=== PATIENT | male | born 1965 | race Caucasian/White ===

== ENCOUNTER → 2016-11-13 | Outpatient (CLI) | payer BC ==
[2016-11-13 11:56] VITALS: BP 133/83; PULSE 75; RESP 20; TEMP 98.5; BMI 45.6
[2016-11-13 13:42] LABS: Partial Thromboplastin Time 26.1 sec (22.0-30.0); Prothrombin Time 10.6 sec (9.0-12.0)
[2016-11-13 13:59] LABS: ALT 85 U/L (21-72); AST 59 U/L (17-59); Alkaline Phosphatase 128 U/L (38-126); Anion Gap 10 mmol/L; Blood Urea Nitrogen 9 mg/dL (9-20); CH 30.9; CHCM 35.6; Calcium 9.6 mg/dL (8.4-10.2); Carbon Dioxide 29 mmol/L (22-30); Chloride 101 mmol/L (98-107); Cholesterol 205 mg/dL (<200); Glucose 84 mg/dL (74-99); HCT 49.8 % (39.0-53.0); HDL Cholesterol 50 mg/dL (40-60); HDW 2.95; HGB 16.8 gm/dL (13.0-17.5); MCH 29.4 pg (25.0-35.0); MCHC 33.8 g/dL (31.0-37.0); MCV 87.1 fL (80.0-100.0); Magnesium 2.1 mg/dL (1.6-2.3); Mean Platelet Volume 8.6; Non-African American GFR(MDRD) >60 (>60 ml/min/1.73 sqM); Phosphorus 3.1 mg/dL (2.5-4.5); RBC 5.72 m/uL (4.30-5.90); RDW 14.3 % (11.5-15.5); Sodium 140 mmol/L (137-145); Total Bilirubin 1.2 mg/dL (0.2-1.3); Total Protein 7.8 g/dL (6.3-8.2)
[2016-11-13 14:46] LABS: Vitamin B12 399 pg/mL (239-931)
[2016-11-13 19:09] LABS: Iron Saturation 40.65 (15.00-50.00)
[2016-11-14 07:58] LABS: Hemoglobin A1C 5.3 % (4.2-6.1)
[2016-11-19 19:17] LABS: Selenium 160 mcg/L (63-160)
--- NOTE | 2016-11-24 09:08 | P.PN ---
Progress Note - Text DATE OF SERVICE: 11/13/2016. CHIEF COMPLAINT: Bariatric assessment. HISTORY OF PRESENT ILLNESS: Brennon Alfredo is a 51-year-old gentleman who has a history of adjustable gastric band. His last visit to the bariatric center was September 2015 now 1 year ago. At that time, he had an adjustment. He now comes in with more weight gain despite having his adjustable gastric band. At his height of 6 feet 1 inches, he came in weighing 329 pounds. Now he comes in weighing 345 pounds. He has gained 16 pounds in 1 year. His body mass index is 45.6. He is 157 pounds overweight. He has developed comorbidities including hypertension and obstructive sleep apnea. He also has worsening osteoarthritis of the lower extremities. PAST MEDICAL HISTORY: 1. Morbid obesity. 2. Osteoarthritis. 3. Hypertension. 4. Obstructive sleep apnea. PAST SURGICAL HISTORY: 1. Left knee arthroscopy. 2. Placement of adjustable gastric band. MEDICATIONS: 1. Norvasc. 2. Hyzaar. ALLERGIES: PENICILLIN. SOCIAL HISTORY: Denies any active tobacco use. Lifelong nontobacco user. FAMILY HISTORY: Pertinent for morbid obesity. REVIEW OF SYSTEMS: CONSTITUTIONAL: At his height of 6 feet 1 inches, he came in weighing 329 pounds. Now he comes in weighing 345 pounds. He has gained 16 pounds in 1 year. His body mass index is 45.6. He is 157 pounds overweight. CARDIOVASCULAR: He has been started on two hypertensive medications secondary to morbid obesity. No chest pain or heart attack. MUSCULOSKELETAL: New onset of osteoarthritis of the bilateral knees secondary to morbid obesity. Has low back pain. HEENT: Denies any trouble with vision or hearing. ENDOCRINE: No reports of diabetes or hypothyroidism. RESPIRATORY: History of obstructive sleep apnea. No reports of pneumonia. GI: Denies any heartburn or blood in stools. NEURO: No headaches or seizure disorders. PSYCH: History of depression without suicidal ideation. HEMATOLOGIC: Denies any easy bruising or bleeding. PHYSICAL EXAM: VITAL SIGNS: 6-foot 1, 345 pounds. Body mass index of 45.6. Vital Signs Temp 98.5 F 11/13/16 11:49 Pulse 75 11/13/16 11:49 Resp 20 11/13/16 11:49 BP 133/83 11/13/16 11:49 Pulse Ox ABDOMEN: No palpable incisional hernias. Lap band port palpated on the left upper quadrant. No signs of redness. Soft, nontender, nondistended. GENERAL: Well-developed, pleasant male in no acute distress. HEENT: No scleral icterus. Extraocular movements grossly intact. Moist buccal mucosa. NECK: Supple without lymphadenopathy. CHEST: Nonlabored respirations. Equal bilateral excursions. CARDIOVASCULAR: Regular rate and rhythm. MUSCULOSKELETAL: No clubbing, cyanosis, or edema. NEURO: No focal or lateralizing signs. Cranial nerves II-12 grossly intact. PSYCH: Appropriate affect. Alert and order person place and time. SKIN: Well perfused. Good skin turgor. LABS: Pending. ASSESSMENT: 1. History of morbid obesity. 2. Body mass index 45.6. 3. Osteoarthritis. 4. History of adjustable gastric band. 5. History of depression. 6. Osteoarthritis of the bilateral knees secondary to morbid obesity. 7. Hypertensive heart disease. 8. Obstructive sleep apnea. PLAN: 1. He has had poor success with the adjustable gastric band past 10-15 pound weight loss. Additionally, now he is seeking a more definitive procedure such as a gastrectomy. 2. Surgical options including gastric bypass, sleeve gastrectomy were described in detail. Alternatives such as gastric balloon including duodenal switch were described. 3. The [place] [facility] data and outcomes calculator were described with surgical options. 4. Recommend a bariatric metabolic panel to evaluate for micro- including macronutrient deficiencies. 5. For history of sleep apnea, recommend evaluation and treatment. 6. Dietary surveillance and counseling was reviewed, I have asked to increase protein intake to at least 90 grams daily. 7. Will need cardiac risk assessment. 8. Recommend medical risk assessment. 9. Psych assessment per insurance guidelines. 10. Follow up upon completion of upper endoscopy. 11. Separately, potential band removal followed by bariatric procedure in two- step seperate procedures were reviewed. ADDENDUM: Findings consistent with hypercholesterolemia including severe vitamin D deficiency and vitamin D deficiency. Recommend supplementation. Laboratory Last Values WBC 8.0 k/uL (3.8-10.6) 11/13/16 13:16 RBC 5.72 m/uL (4.30-5.90) 11/13/16 13:16 Hgb 16.8 gm/dL (13.0-17.5) 11/13/16 13:16 Hct 49.8 % (39.0-53.0) 11/13/16 13:16 MCV 87.1 fL (80.0-100.0) 11/13/16 13:16 MCH 29.4 pg (25.0-35.0) 11/13/16 13:16 MCHC 33.8 g/dL (31.0-37.0) 11/13/16 13:16 RDW 14.3 % (11.5-15.5) 11/13/16 13:16 Plt Count 260 k/uL (150-450) 11/13/16 13:16 PT 10.6 sec (9.0-12.0) 11/13/16 13:16 INR 1.0 (<1.2) 11/13/16 13:16 APTT 26.1 sec (22.0-30.0) 11/13/16 13:16 Sodium 140 mmol/L (137-145) 11/13/16 13:16 Potassium 4.0 mmol/L (3.5-5.1) 11/13/16 13:16 Chloride 101 mmol/L (98-107) 11/13/16 13:16 Carbon Dioxide 29 mmol/L (22-30) 11/13/16 13:16 Anion Gap 10 mmol/L 11/13/16 13:16 BUN 9 mg/dL (9-20) 11/13/16 13:16 Creatinine 0.80 mg/dL (0.66-1.25) 11/13/16 13:16 Est GFR (MDRD) Af Amer >60 (>60 ml/min/1.73 sqM) 11/13/16 13:16 Est GFR (MDRD) Non-Af >60 (>60 ml/min/1.73 sqM) 11/13/16 13:16 Glucose 84 mg/dL (74-99) 11/13/16 13:[address] Glu mg/dL 105 mg/dL 11/13/16 13:16 Hemoglobin A1c 5.3 % (4.2-6.1) 11/13/16 13:16 Calcium 9.6 mg/dL (8.4-10.2) 11/13/16 13:16 Phosphorus 3.1 mg/dL (2.5-4.5) 11/13/16 13:16 Magnesium 2.1 mg/dL (1.6-2.3) 11/13/16 13:16 Iron 126 ug/dL (65-175) 11/13/16 13:16 TIBC 310 ug/dL (228-460) 11/13/16 13:16 Iron Saturation 40.65 (15.00-50.00) 11/13/16 13:16 Ferritin 640.8 ng/mL (22.0-322.0) H 11/13/16 13:16 Total Bilirubin 1.2 mg/dL (0.2-1.3) 11/13/16 13:16 AST 59 U/L (17-59) 11/13/16 13:16 ALT 85 U/L (21-72) H 11/13/16 13:16 Alkaline Phosphatase 128 U/L (38-126) H 11/13/16 13:16 Total Protein 7.8 g/dL (6.3-8.2) 11/13/16 13:16 Albumin 4.4 g/dL (3.5-5.0) 11/13/16 13:16 Prealbumin 19.0 mg/dL (18.0-42.0) 11/13/16 13:16 Triglycerides 126 mg/dL (<150) 11/13/16 13:16 Cholesterol 205 mg/dL (<200) H 11/13/16 13:16 LDL Cholesterol, Calc 130 mg/dL (0-99) H 11/13/16 13:16 HDL Cholesterol 50 mg/dL (40-60) 11/13/16 13:16 Vitamin A 27 ug/dL (38-106) L 11/13/16 13:16 Vitamin B1 76 ug/L (38-122) 11/13/16 13:16 Vitamin B12 399 pg/mL (239-931) 11/13/16 13:16 Vitamin D 25-Hydroxy 10.6 ng/mL (30.0-100.0) L 11/13/16 13:16 Folate 19.6 ng/mL 11/13/16 13:16 TSH 1.940 mIU/L (0.465-4.680) 11/13/16 13:16 PTH Intact 122.5 pg/mL (14.0-72.0) H 11/13/16 13:16 Copper 1372 ug/L (665-1480) 11/13/16 13:16 Selenium 160 mcg/L (63-160) 11/13/16 13:16 Zinc 104 ug/dL (60-130) 11/13/16 13:16
== END | disposition home or self-care (01) ==
LOC: BARWHC3 10:52
PROVIDERS: ATTEND Surgery Plastic and Reconstructive Surgery
DX: Z48.815 Encounter for surgical aftercare following surgery on the digestive system (principal); E66.01 Morbid (severe) obesity due to excess calories; M19.90 Unspecified osteoarthritis, unspecified site; F32.9 Major depressive disorder, single episode, unspecified; M17.0 Bilateral primary osteoarthritis of knee; I11.9 Hypertensive heart disease without heart failure; G47.33 Obstructive sleep apnea (adult) (pediatric); E21.1 Secondary hyperparathyroidism, not elsewhere classified; E89.1 Postprocedural hypoinsulinemia; D50.9 Iron deficiency anemia, unspecified; K90.9 Intestinal malabsorption, unspecified; E44.0 Moderate protein-calorie malnutrition; E55.9 Vitamin D deficiency, unspecified; K74.1 Hepatic sclerosis; N19 Unspecified kidney failure; K50.90 Crohn's disease, unspecified, without complications; Z68.42 Body mass index [BMI] 45.0-49.9, adult; Z79.899 Other long term (current) drug therapy; Z98.84 Bariatric surgery status; Z88.0 Allergy status to penicillin
CPT/HCPCS: 80053; 80061; 82306; 82525; 82607; 82728; 82746; 83036; 83540; 83550; 83735; 83970; 84100; 84134; 84255; 84425; 84443; 84590; 84630; 85027; 85610; 85730; 99211

== ENCOUNTER → 2016-11-24 | Outpatient (CLI) | payer BC ==
--- NOTE | 2016-11-24 20:55 | CT ---
EXAMINATION TYPE: CT abdomen wo con DATE OF EXAM: 11/24/2016 HISTORY: Abdominal in particular left upper and lower quadrants pain per order. Epigastric pain near lap band for [address] DLP: 1146.20 mGycm. Automated Exposure Control for Dose Reduction was Utilized. TECHNIQUE: CT scan of the abdomen is performed with oral but without IV contrast. COMPARISON: NONE FINDINGS: Within the limitations of a non-contrast study, the following observations are made. LUNG BASES: No suspicious abnormality is seen. LIVER/GB: Liver is markedly diffusely low dense consistent with fatty infiltration. PANCREAS: No significant abnormality is seen. SPLEEN: No significant abnormality is seen. ADRENALS: No significant abnormality is seen. KIDNEYS: No renal stones or hydronephrosis is present bilaterally. BOWEL: Lap band position is felt satisfactory just below diaphragm. There may be small hiatal hernia or dilatation of distal esophagus above this. Oral contrast is seen in nondistended stomach and duode nal sweep. Oral contrast seen in nondistended jejunal loops in the left abdomen. Fecal material is se en in nondistended colon. LYMPH NODES: No greater than 1cm abdominal lymph nodes are appreciated. OSSEOUS STRUCTURES: Spine is straightened. There is mild to moderate multilevel spurring in the visua lized thoracic spine. OTHER: There is small fat-containing umbilical hernia. IMPRESSION: No suspicious finding is seen to account for patient's symptoms. No CT evidence for lap b and slippage.
== END | disposition home or self-care (01) ==
LOC: RADCTMAIN 18:16
PROVIDERS: ATTEND Surgery Plastic and Reconstructive Surgery
DX: R10.12 Left upper quadrant pain (principal); R10.32 Left lower quadrant pain
CPT/HCPCS: 74150

== ENCOUNTER 2024-05-16 06:55 | Day surgery (SDC) | payer BC ==
[2024-05-12 14:09] VITALS: BMI 46.1
[~2024-05-16 06:55] MED LIST: LACTATED RINGERS 1,000 ML IV SCH
[2024-05-16] MEDS: IV FLUID CONTINUATION 1,000 ML IV ONE (07:16)
[2024-05-16 07:44] VITALS: TEMP 98.5
--- NOTE | 2024-05-16 07:50 | P.GSHP ---
History of Present Illness H&P Date: 05/16/24 CHIEF COMPLAINT: GERD HISTORY OF PRESENT ILLNESS: The patient is a 59-year-old male who presents reports gastroesophageal reflux disease and dysphagia. Upper endoscopy was offered for further evaluation and management. PAST MEDICAL HISTORY: Please see list. PAST SURGICAL HISTORY: Please see list. MEDICATIONS: Please see list. ALLERGIES: Please see list. SOCIAL HISTORY: No illicit drug use FAMILY HISTORY: No reports of Crohn disease or ulcerative colitis. REVIEW OF ORGAN SYSTEMS: CONSTITUTIONAL: No reports of fevers or chills. GI: Denies any blood in stools or constipation. PHYSICAL EXAM: VITAL SIGNS: Stable GENERAL: Well-developed and pleasant in no acute distress. HEENT: No scleral icterus. Extraocular movements grossly intact. Moist buccal mucosa. NECK: Supple without lymphadenopathy. CHEST: Unlabored respirations. Equal bilateral excursions. CARDIOVASCULAR: Regular rate and rhythm. Distal 2+ pulses. ABDOMEN: Soft, nondistended. MUSCULOSKELETAL: No clubbing, cyanosis, or edema. ASSESSMENT: 1. Gastroesophageal reflux disease and dysphagia PLAN: 1. Recommend proceeding with an upper endoscopy Past Medical History Past Medical History: Diabetes Mellitus, Hyperlipidemia, Hypertension, Osteoarthritis (OA), Sleep Apnea/CPAP/BIPAP Additional Past Medical History / Comment(s): borderline hyperlipidema, MGUS- blood disorder. History of Any Multi-Drug Resistant Organisms: None Reported Past Surgical History: Bariatric Surgery, Orthopedic Surgery Additional Past Surgical History / Comment(s): Lap Band (Dr. Henry 2002) , Left knee scope x3, Rt ring trigger finger injection, COLONOSCOPY,EGD Past Anesthesia/Blood Transfusion Reactions: No Reported Reaction Smoking Status: Never smoker - Past Family History Mother Family Medical History: Cancer, Hypertension Additional Family Medical History / Comment(s): at age 65 from lung cancer, was a smoker Father Family Medical History: COPD, Hypertension Additional Family Medical History / Comment(s): Still living age 74 as of 10/03/15 Medications and Allergies Home Medications Medication Instructions Recorded Confirmed Type Aspirin [Adult Low Dose Aspirin EC] 81 mg PO PC-LUNCH 03/30/24 05/16/24 History Atorvastatin [Lipitor] 20 mg PO PC-SUPPER 03/30/24 05/16/24 History Cholecalciferol [Vitamin D3 (125 125 mcg PO PC-SUPPER 03/30/24 05/16/24 History Mcg = 5000 Iu)] Loratadine [Claritin] 10 mg PO PC-SUPPER 03/30/24 05/16/24 History Losartan Potassium 100 mg PO PC-SUPPER 03/30/24 05/16/24 History Metoprolol Succinate (ER) [Toprol 50 mg PO PC-SUPPER 03/30/24 05/16/24 History Xl] [place]-3/Dha/Epa/Fish Oil [Fish Oil 1 tab PO PC-SUPPER 03/30/24 05/16/24 History 500 mg Softgel] Vitamin A 2,400 mcg PO PC-SUPPER 03/30/24 05/16/24 History amLODIPine [Norvasc] 10 mg PO PC-SUPPER 03/30/24 05/16/24 History hydroCHLOROthiazide 12.5 mg PO PC-SUPPER 03/30/24 05/16/24 History Allergies Allergy/AdvReac Type Severity Reaction Status Date / Time aspirin Allergy Rash/Hives Verified 05/16/24 07:34 Penicillins Allergy Rash/Hives Verified 05/16/24 07:34 Surgical - Exam Vital Signs Temp Pulse Resp BP Pulse Ox 98.5 F 86 18 185/76 96 05/16/24 07:43 05/16/24 07:43 05/16/24 07:43 05/16/24 07:43 05/16/24 07:43
[2024-05-16] MEDS ORDERED: LIDOCAINE 2% (PF) 20 MG/ML 5 ML VIAL ONE (07:51)
[2024-05-16] MEDS ORDERED: PROPOFOL 10 MG/ML 20 ML VIAL IV ONE (07:51)
--- NOTE | 2024-05-16 08:25 | P.PCN ---
Date of Procedure: 05/16/24 Description of Procedure: PREOPERATIVE DIAGNOSIS: Dysphagia Adjustable gastric band status Gastroesophageal reflux disease. Morbid obesity. POSTOPERATIVE DIAGNOSIS: Gastroesophageal reflux disease. Morbid obesity due to excess calories Gastritis. Gastric polyps Adjustable gastric band OPERATION: Esophagogastroduodenoscopy with cold forceps biopsies along esophagus, antrum and duodenum SURGEON: Jamila Gutierrez MD ANESTHESIA: MAC. INDICATIONS: The patient is a 59-year-old male who presents with dysphagia and adjustable gastric band with reflux disease. Benefits and risks of the procedure were described. Informed consent was obtained. DESCRIPTION: The patient was brought into the endoscopy suite and laid in the left lateral decubitus position. An Olympus gastroscope was passed along the posterior oropharynx down to the distal esophagus where the squamocolumnar junction was encountered at 40 cm from the incisors. The stomach was entered and no bile reflux was found. Additional findings are listed below. Biopsies with cold forceps were obtained of the antrum. The first through third portion of the duodenum was examined. Retroflexion of the scope confirmed Hill grade 1 lower esophageal valve. The squamocolumnar junction demonstrated LA grade B erosive esophagitis. The stomach was desufflated. The patient tolerated the procedure well. FINDINGS: Squamocolumnar junction 40 cm from the incisors. Adjustable gastric band pouch, 3 cm Adjustable gastric band without erosion Hill grade 1 lower esophageal valve. LA grade B erosive esophagitis. Biopsies obtained Biopsies obtained of the duodenum. Chronic gastritis with biopsies obtained. Few hyperplastic gastric polyps less than 4 mm RECOMMENDATIONS: Upper endoscopy as needed. Plan - Discharge Summary Discharge Rx Participant: No New Discharge Prescriptions: Continue [place]-3/Dha/Epa/Fish Oil [Fish Oil 500 mg Softgel] 1 tab PO PC-SUPPER Loratadine [Claritin] 10 mg PO PC-SUPPER Vitamin A 2,400 mcg PO PC-SUPPER hydroCHLOROthiazide 12.5 mg PO PC-SUPPER Losartan Potassium 100 mg PO PC-SUPPER Aspirin [Adult Low Dose Aspirin EC] 81 mg PO PC-LUNCH amLODIPine [Norvasc] 10 mg PO PC-SUPPER Metoprolol Succinate (ER) [Toprol XL] 50 mg PO PC-SUPPER Atorvastatin [Lipitor] 20 mg PO PC-SUPPER Cholecalciferol [Vitamin D3 (125 Mcg = 5000 Iu)] 125 mcg PO PC-SUPPER Discharge Medication List Aspirin [Adult Low Dose Aspirin EC] 81 mg PO PC-LUNCH 03/30/24 [History] Atorvastatin [Lipitor] 20 mg PO PC-SUPPER 03/30/24 [History] Cholecalciferol [Vitamin D3 (125 Mcg = 5000 Iu)] 125 mcg PO PC-SUPPER 03/30/24 [History] Loratadine [Claritin] 10 mg PO PC-SUPPER 03/30/24 [History] Losartan Potassium 100 mg PO PC-SUPPER 03/30/24 [History] Metoprolol Succinate (ER) [Toprol XL] 50 mg PO PC-SUPPER 03/30/24 [History] [place]-3/Dha/Epa/Fish Oil [Fish Oil 500 mg Softgel] 1 tab PO PC-SUPPER 03/30/24 [History] Vitamin A 2,400 mcg PO PC-SUPPER 03/30/24 [History] amLODIPine [Norvasc] 10 mg PO PC-SUPPER 03/30/24 [History] hydroCHLOROthiazide 12.5 mg PO PC-SUPPER 03/30/24 [History] [facility]Ref[facility] [place] [facility] [place] [facility] 3:00 pm Patient Instructions/Handouts: *Surgery [facility] - (Anesthesia) Discharge Instructions Outpatient Surgery, GERD (Gastroesophageal Reflux Disease) (GEN) Discharge Disposition: HOME SELF-CARE
[2024-05-16 08:29] VITALS: BP 154/92; PULSE 75; RESP 16
== END 2024-05-16 08:50 | disposition home or self-care (01) ==
LOC: ORWHC2ENDO 06:55
PROVIDERS: ATTEND Surgery Plastic and Reconstructive Surgery
DX: K29.50 Unspecified chronic gastritis without bleeding (principal); K31.7 Polyp of stomach and duodenum; K21.00 Gastro-esophageal reflux disease with esophagitis, without bleeding; M19.90 Unspecified osteoarthritis, unspecified site; I10 Essential (primary) hypertension; E78.5 Hyperlipidemia, unspecified; E66.01 Morbid (severe) obesity due to excess calories; E11.9 Type 2 diabetes mellitus without complications; G47.33 Obstructive sleep apnea (adult) (pediatric); Z79.82 Long term (current) use of aspirin; Z88.0 Allergy status to penicillin; Z79.899 Other long term (current) drug therapy; Z68.42 Body mass index [BMI] 45.0-49.9, adult; Z99.89 Dependence on other enabling machines and devices; Z98.84 Bariatric surgery status
CPT/HCPCS: 88305; 43239; J2704; J2003

== ENCOUNTER 2024-06-09 07:45 | Day surgery (SDC) | payer BC ==
--- NOTE | 2024-06-09 06:34 | P.GSHP ---
History of Present Illness H&P Date: 06/09/24 CHIEF COMPLAINT: Morbid obesity HISTORY OF PRESENT ILLNESS: Brennon Alfredo is a 59-year-old male with adjustable gastric band send 2002. He presents with complications of adjustable gastric band and seeking removal. Despite his adjustable gastric band, he continues to gain weight. At his height of 6 feet 1 inches, he came in weighing 329 pounds. Now he comes in weighing 345 pounds. He has gained 16 pounds in 1 year. His body mass index is 45.6. He is 157 pounds overweight. PAST MEDICAL HISTORY: 1. Morbid obesity due to excess calories, BMI 46.1 2. Osteoarthritis lower back 3. Hypertensive heart disease 4. Obstructive sleep apnea. 5. Generalized anxiety disorder 6. Depressive disorder 7. Hyperlipidemia PAST SURGICAL HISTORY: 1. Lap-Band, 2002 2. Left knee arthroscopy 3. Right trigger finger repair MEDICATIONS: ALLERGIES: SOCIAL HISTORY: Denies any active tobacco use. Lifelong nontobacco user. FAMILY HISTORY: Pertinent for morbid obesity. No esophageal or stomach cancer. REVIEW OF SYSTEMS: CONSTITUTIONAL: At his height of 6 feet 1 inches, he came in weighing 329 pounds. Now he comes in weighing 345 pounds. He has gained 16 pounds in 1 year. His body mass index is 45.6. He is 157 pounds overweight. CARDIOVASCULAR: He has been started on two hypertensive medications secondary to morbid obesity. No chest pain or heart attack. MUSCULOSKELETAL: New onset of osteoarthritis of the bilateral knees secondary to morbid obesity. Has low back pain. HEENT: Denies any trouble with vision or hearing. ENDOCRINE: No reports of diabetes or hypothyroidism. RESPIRATORY: History of obstructive sleep apnea. No reports of pneumonia. GASTROINTESTINAL: Denies any heartburn or blood in stools. NEURO: No headaches or seizure disorders. PSYCH: History of depression without suicidal ideation. HEMATOLOGIC: Denies any easy bruising or bleeding. GENITOURINARY: Denies blood in urine. SKIN: Has panniculitis. No cancer. PHYSICAL EXAM: VITAL SIGNS: 6 foot 1, 349 pounds. Body mass index of 46.1 ABDOMEN: No palpable incisional hernias. Lap band port palpated. the left upper quadrant. No signs of redness. Soft, nontender, nondistended. GENERAL: Well-developed, pleasant male in no acute distress. HEENT: No scleral icterus. Extraocular movements grossly intact. Moistbuccal mucosa. NECK: Supple without lymphadenopathy. CHEST: Nonlabored respirations. Equal bilateral excursions. CARDIOVASCULAR: Regular rate and rhythm. MUSCULOSKELETAL: No clubbing, cyanosis, or edema. NEURO: No focal or lateralizing signs. Cranial nerves II-12 grossly intact. PSYCH: Appropriate affect. Alert and order person place and time. SKIN: Well perfused. Good skin turgor. ASSESSMENT: 1. Morbid obesity due to excess calories, BMI 46.1 2. Osteoarthritis lower back 3. Hypertensive heart disease 4. Obstructive sleep apnea. 5. Generalized anxiety disorder 6. Depressive disorder 7. Hyperlipidemia 8. Complications of adjustable gastric band PLAN: 1. He presents with complications from his adjustable gastric band including no weight loss. Agree with removal of adjustable gastric band. 2. VTE prophylaxis with Lovenox 40 mg 3. Recommend abdominal wall block for nonnarcotic pain management 4. Elevated risk due to pre-existing heart disease Past Medical History Past Medical History: Blood Disorder, Diabetes Mellitus, Hyperlipidemia, Hypertension, Osteoarthritis (OA), Sleep Apnea/CPAP/BIPAP Additional Past Medical History / Comment(s): borderline diabetes, MGUS- Monoclonal Gammopathy-blood disorder, uses CPAP. History of Any Multi-Drug Resistant Organisms: None Reported Past Surgical History: Bariatric Surgery, Orthopedic Surgery Additional Past Surgical History / Comment(s): Lap Band (Dr. Henry 2002), Left knee scope x3, Rt ring trigger finger injection, COLONOSCOPY, EGD Past Anesthesia/Blood Transfusion Reactions: No Reported Reaction Smoking Status: Never smoker - Past Family History Mother Family Medical History: Hypertension, Respiratory Disorder Additional Family Medical History / Comment(s): at age 63 from lung problems, was a smoker Father Family Medical History: COPD, Hypertension Additional Family Medical History / Comment(s): Still living age 74 as of 10/03/15 Medications and Allergies Home Medications Medication Instructions Recorded Confirmed Type Aspirin [Adult Low Dose Aspirin EC] 81 mg PO PC-LUNCH 03/30/24 06/06/24 History Atorvastatin [Lipitor] 20 mg PO PC-SUPPER 03/30/24 06/06/24 History Cholecalciferol [Vitamin D3 (125 125 mcg PO PC-SUPPER 03/30/24 06/06/24 History Mcg = 5000 Iu)] Loratadine [Claritin] 10 mg PO PC-SUPPER 03/30/24 06/06/24 History Losartan Potassium 100 mg PO PC-SUPPER 03/30/24 06/06/24 History Metoprolol Succinate (ER) [Toprol 50 mg PO PC-SUPPER 03/30/24 06/06/24 History XL] [place]-3/Dha/Epa/Fish Oil [Fish Oil 1 tab PO PC-SUPPER 03/30/24 06/06/24 History 500 mg Softgel] Vitamin A 2,400 mcg PO PC-SUPPER 03/30/24 06/06/24 History amLODIPine [Norvasc] 10 mg PO PC-SUPPER 03/30/24 06/06/24 History hydroCHLOROthiazide 12.5 mg PO PC-SUPPER 03/30/24 06/06/24 History Allergies Allergy/AdvReac Type Severity Reaction Status Date / Time aspirin Allergy Rash/Hives Verified 06/06/24 12:03 Penicillins Allergy Rash/Hives Verified 06/06/24 12:03
[~2024-06-09 07:45] MED LIST changes: +HEPARIN SODIUM,PORCINE 5,000 UNIT/ML 1 ML VIAL SQ PRN; +HYDROmorphone 0.5 MG/0.5 ML SYRINGE IVP PRN; -LACTATED RINGERS 1,000 ML IV SCH; +ONDANSETRON 4 MG/2 ML VIAL IVP PRN
[2024-06-09] MEDS: LACTATED RINGERS 1,000 ML IV SCH (08:29)
[2024-06-09] MEDS: IV FLUID CONTINUATION 1,000 ML IV ONE (08:35)
[2024-06-09 08:38] LABS: Glucose,Whole Blood 113 mg/dL (70-110)
[2024-06-09] MEDS: PANTOPRAZOLE 40 MG/10 ML VIAL IVP STA (08:44)
[2024-06-09] MEDS: ACETAMINOPHEN TAB 500 MG TAB PO PRN (08:44)
[2024-06-09] MEDS: DEXAMETHASONE SOD PHOSPHATE 4 MG/ML 1 ML VIAL IV ONE (08:44)
[2024-06-09] MEDS: ONDANSETRON 4 MG/2 ML VIAL IVP ONE (08:44)
[2024-06-09] MEDS: CHLORHEXIDINE GLUCONATE 15 ML CUP MUCOUS MEM STA (08:48)
[2024-06-09] MEDS: ENOXAPARIN 40 MG/0.4 ML SYRINGE SQ STA (08:48)
[2024-06-09] MEDS ORDERED: MIDAZOLAM 2 MG/2 ML VIAL ONE (09:12)
[2024-06-09] MEDS ORDERED: ROCURONIUM 10 MG/ML (5 ML VIAL) IV ONE (09:12)
[2024-06-09] MEDS ORDERED: SUCCINYLCHOLINE CHLORIDE 200 MG/10 ML VIAL IV ONE (09:12)
[2024-06-09] MEDS ORDERED: PROPOFOL 10 MG/ML 20 ML VIAL IV ONE (09:12)
[2024-06-09] MEDS ORDERED: fentaNYL (PF) 50 MCG/ML 2 ML AMP ONE (09:12)
[2024-06-09] MEDS ORDERED: LIDOCAINE 1% INJ 10MG/ML (20 ML MDV) ONE (09:12)
[2024-06-09] MEDS ORDERED: GLYCOPYRROLATE 0.2 MG/ML 2 ML VIAL ONE (09:12)
[2024-06-09] MEDS ORDERED: NEOSTIGMINE 1 MG/ML 10 ML VIAL ONE (09:12)
[2024-06-09] MEDS: ceFAZolin 3 GM in SODIUM CHLORIDE 0.9% 100 ML IVPB PRN (09:17)
[2024-06-09] MEDS: LIDOCAINE 1%-EPI 1:100,000 20 ML VIAL SQ ONE (09:51)
[2024-06-09] MEDS: LACTATED RINGERS 1,000 ML IV ONE (10:38)
[2024-06-09 11:10] VITALS: TEMP 97.1
--- NOTE | 2024-06-09 11:21 | P.OP ---
Date of Procedure: 06/09/24 Description of Procedure: SURGEON: BRYN PARRA MD PREOPERATIVE DIAGNOSES: 1. Morbid obesity due to excess calories, BMI 46.1 2. Osteoarthritis lower back 3. Hypertensive heart disease 4. Obstructive sleep apnea. 5. Generalized anxiety disorder 6. Depressive disorder 7. Hyperlipidemia 8. Complications from adjustable gastric band POSTOPERATIVE DIAGNOSES: 1. Morbid obesity due to excess calories, BMI 46.1 2. Osteoarthritis lower back 3. Hypertensive heart disease 4. Obstructive sleep apnea. 5. Generalized anxiety disorder 6. Depressive disorder 7. Hyperlipidemia 8. Complications from adjustable gastric band 9. Fatty liver disease 10. Cirrhosis, grade 1 micronodular OPERATION: 1. Robotic-assisted da Mateus Xi laparoscopic removal of adjustable gastric band and all components. ANESTHESIA: General with local anesthetic. ESTIMATED BLOOD LOSS: 5 mL SPECIMENS REMOVED: 1. Adjustable gastric band and components -not sent Condition: stable Disposition: same day COMPLICATIONS: None. Operative Findings: 1. Adjustable gastric band port found along the epigastrium removed in total, first generation Allergan band 2. Densely encased adjustable gastric band removed in total 3. Moderate to severe fatty liver disease, grade 1 liver cirrhosis micronodular INDICATIONS: The patient is a 59-year-old male who presents with complications of adjustable gastric band. Surgical options were described including removal of the band. As she has persistent pain and discomfort from the band, removal of the adjustable gastric band and port including all components was proposed. Benefits and risks of the procedure were described. Informed consent was obtained. DESCRIPTION: The patient was brought into the operating room theater. The patient was placed supine. The patient had received Lovenox subcutaneously for DVT prophylaxis. Additionally she Peridex oral solution as an oral decontaminant was placed per anesthesia. After general induction, the abdomen was prepped and draped in standard sterile fashion. Ioban draping was placed along the abdomen. A robotic da Mateus Xi system was prepped and primed. Prior to incision, a timeout protocol was performed and confirmed with the surgical team. Attention was brought to the abdomen where the port was palpated along the epigastrium. After localizing the skin, transverse 3 cm incision was made over the adjustable gastric band port and circumferentially dissected free using Bovie cautery and blunt dissection. Attention was now brought to the intra-abdominal component of the procedure for the removal of the adjustable gastric band. Incisions were proposed at 12 cm from the xiphoid. Proposed port sites were marked with indelible marker along the anterior axillary line bilaterally, mid clavicular line bilaterally with each port marked 10 cm from each other. A 5 mm 0 degrees laparoscopic trocar entry was performed along the left upper quadrant. The abdomen was insufflated to 15 mmHg pressure, which she tolerated well. Diagnostic laparoscopy demonstrated no injury to bowel, viscera, or mesentery. Liver demonstrated moderate yellow deposits consistent with fatty liver disease, micronodular grade 1 cirrhosis. An 8 mm camera port was placed left lateral to the umbilicus at the epigastrium, 12 cm distal to the xiphoid. Next, 8-mm port was placed along the right mid abdomen. The 5 mm port was exchanged for 12 mm trocar. The robot was docked along the left lateral abdomen. The patient was repositioned in reverse Trendelenburg position, 26-degrees. A 30-degree camera was used. Using graspers for arm 4, including scissors with cautery for arm 1, and hook cautery was used for arm 2. the robotic system was docked and primed as described. Instruments were interchanged by the stores assistant. I had sat at the console. Adjustable gastric band was embedded into dense cicatrix which was carefully dissected free. Additionally, the buckle of the adjustable gastric band was densely adherent to the deep tissue requiring cutting the band away from the buckle. The port was followed with its tubing to the gastric band. The gastrohepatic ligament was scarred from prior surgery. The cicatrix around the adjustable gastric band was carefully dissected free. The anti-prolapse stitch was intact. Using hot cautery, the cicatrix of the port was incised. The band was then freed. Allergan adjustable gastric band was removed in total. Care was taken to avoid any gastrotomies. The band buckle was cut. I re-scrubbed into the case. The port and band were removed in total without injury to the stomach via the epigastrium including the cut buckle. Hemostasis was excellent. Diagnostic laparoscopy demonstrated complete removal of all foreign body. All instruments and pneumoperitoneum were evacuated from the abdominal cavity. The port extraction site was hemostatic. The port site was irrigated using normal saline and hydrogen peroxide. The incisions were reapproximated using 4- 0 Monocryl in a subcuticular interrupted fashion. Optifoam dressing was placed over the port extraction site. At the end of the procedure, needle, sponge and instrument counts were verified correct by the neurosurgical nurse. The patient had tolerated the procedure well. An abdominal binder was placed. The patient was transferred to Postanesthesia Care Unit in stable condition. Postoperative findings with intraoperative images were discussed with the patient's family who were pleased with the level of care. Plan - Discharge Summary Discharge Rx Participant: No New Discharge Prescriptions: New Simethicone [Gas-X] 125 mg PO AC-TID PRN #20 capsule PRN Reason: Pain Acetaminophen Tab [Tylenol Tab] 1,000 mg PO Q6HR PRN #30 tablet PRN Reason: Pain Pantoprazole [Protonix] 40 mg PO DAILY #14 tab Continue Loratadine [Claritin] 10 mg PO PC-SUPPER hydroCHLOROthiazide 12.5 mg PO PC-SUPPER Losartan Potassium 100 mg PO PC-SUPPER Aspirin [Adult Low Dose Aspirin EC] 81 mg PO PC-LUNCH amLODIPine [Norvasc] 10 mg PO PC-SUPPER Metoprolol Succinate (ER) [Toprol XL] 50 mg PO PC-SUPPER Atorvastatin [Lipitor] 20 mg PO PC-SUPPER Discontinued [place]-3/Dha/Epa/Fish Oil [Fish Oil 500 mg Softgel] 1 tab PO PC-SUPPER Vitamin A 2,400 mcg PO PC-SUPPER Cholecalciferol [Vitamin D3 (125 Mcg = 5000 Iu)] 125 mcg PO PC-SUPPER Discharge Medication List Aspirin [Adult Low Dose Aspirin EC] 81 mg PO PC-LUNCH 03/30/24 [History] Atorvastatin [Lipitor] 20 mg PO PC-SUPPER 03/30/24 [History] Loratadine [Claritin] 10 mg PO PC-SUPPER 03/30/24 [History] Losartan Potassium 100 mg PO PC-SUPPER 03/30/24 [History] Metoprolol Succinate (ER) [Toprol XL] 50 mg PO PC-SUPPER 03/30/24 [History] amLODIPine [Norvasc] 10 mg PO PC-SUPPER 03/30/24 [History] hydroCHLOROthiazide 12.5 mg PO PC-SUPPER 03/30/24 [History] Acetaminophen Tab [Tylenol Tab] 1,000 mg PO Q6HR PRN #30 tablet 06/09/24 [Rx] Pantoprazole [Protonix] 40 mg PO DAILY #14 tab 06/09/24 [Rx] Simethicone [Gas-X] 125 mg PO AC-TID PRN #20 capsule 06/09/24 [Rx] Follow up Appointment(s[facility]Ref[facility](s[facility] [place] [facility] - 06/22/24 3:00 pm Patient Instructions/Handouts: Abdominal Binder (DC), Adjustable Gastric Band Removal (DC) Activity/Diet/Wound Care/Special Instructions: No lifting for 10 pounds in 2 weeks, June 23 NO LONG DRIVES OR AIRPLANE RIDES OVER 60 MINUTES FOR THE NEXT 2 WEEKS DUE TO HIGH RISK OF PULMONARY EMBOLISM/DVTs Using antibacterial soap. May shower. No bathtub soaks for 2 weeks, June 23 Wear abdominal binder daily for comfort except for showering. Use ice along incisions for today to prevent swelling. Use Tylenol, simethicone and ibuprofen or Aleve scheduled for the next 24-48 hours for best pain relief. Discharge Disposition: HOME SELF-CARE
[2024-06-09 11:41] LABS: Glucose,Whole Blood 174 mg/dL (70-110)
[2024-06-09 12:34] VITALS: RESP 18
[2024-06-09 12:51] VITALS: BP 128/78; PULSE 90
== END 2024-06-09 13:11 | disposition home or self-care (01) ==
LOC: OR 07:45
PROVIDERS: ATTEND Surgery Plastic and Reconstructive Surgery
DX: K95.09 Other complications of gastric band procedure (principal); I11.9 Hypertensive heart disease without heart failure; E11.9 Type 2 diabetes mellitus without complications; E78.5 Hyperlipidemia, unspecified; G47.33 Obstructive sleep apnea (adult) (pediatric); D47.2 Monoclonal gammopathy; K74.69 Other cirrhosis of liver; K76.0 Fatty (change of) liver, not elsewhere classified; M47.816 Spondylosis without myelopathy or radiculopathy, lumbar region; M17.0 Bilateral primary osteoarthritis of knee; F41.1 Generalized anxiety disorder; F32.A Depression, unspecified; M79.3 Panniculitis, unspecified; E66.01 Morbid (severe) obesity due to excess calories; Z68.42 Body mass index [BMI] 45.0-49.9, adult; Z79.82 Long term (current) use of aspirin; Z79.899 Other long term (current) drug therapy; Z83.49 Family history of other endocrine, nutritional and metabolic diseases; Z88.0 Allergy status to penicillin; Z88.6 Allergy status to analgesic agent; Z91.030 Bee allergy status
CPT/HCPCS: 43774; S2900

== ENCOUNTER → 2024-06-20 | Outpatient (CLI) | payer BC ==
[2024-06-20 13:18] VITALS: BMI 45.3
== END ==
LOC: BARWHC3 12:58
PROVIDERS: ATTEND Surgery Plastic and Reconstructive Surgery
DX: E66.01 Morbid (severe) obesity due to excess calories (principal); Z88.0 Allergy status to penicillin; Z88.6 Allergy status to analgesic agent
CPT/HCPCS: 97804

== ENCOUNTER 2024-07-25 08:48 | Day surgery (SDC) | payer BC ==
--- NOTE | 2024-07-25 08:32 | P.GSHP ---
History of Present Illness H&P Date: 07/25/24 CHIEF COMPLAINT: Morbid obesity HISTORY OF PRESENT ILLNESS: Brennon Alfredo is a 58-year-old male with adjustable gastric band send 2002. He is 22 years with his adjustable gastric band. His last visit to the bariatric center was 8 years ago. As a result of his morbid obesity, he has developed osteoarthritis of the lower back, hypertensive heart disease, struct of sleep apnea including hyperlipidemia. He reports having a recent colonoscopy last year for his birthday. He presents with complications of adjustable gastric band after removal. He is seeking sleeve gastrectomy. At his height of 6 feet 1 inches, he came in weighing 329 pounds. Now he comes in weighing 345 pounds. He has gained 16 pounds in 1 year. His body mass index is 45.6. He is 157 pounds overweight. PAST MEDICAL HISTORY: 1. Morbid obesity due to excess calories, BMI 46.1 2. Osteoarthritis lower back 3. Hypertensive heart disease 4. Obstructive sleep apnea. 5. Generalized anxiety disorder 6. Depressive disorder 7. Hyperlipidemia PAST SURGICAL HISTORY: 1. Lap-Band, 2002 2. Left knee arthroscopy 3. Right trigger finger repair MEDICATIONS: ALLERGIES: SOCIAL HISTORY: Denies any active tobacco use. Lifelong nontobacco user. FAMILY HISTORY: Pertinent for morbid obesity. No esophageal or stomach cancer. REVIEW OF SYSTEMS: CONSTITUTIONAL: At his height of 6 feet 1 inches, he came in weighing 329 pounds. Now he comes in weighing 345 pounds. He has gained 16 pounds in 1 year. His body mass index is 45.6. He is 157 pounds overweight. CARDIOVASCULAR: He has been started on two hypertensive medications secondary to morbid obesity. No chest pain or heart attack. MUSCULOSKELETAL: New onset of osteoarthritis of the bilateral knees secondary to morbid obesity. Has low back pain. HEENT: Denies any trouble with vision or hearing. ENDOCRINE: No reports of diabetes or hypothyroidism. RESPIRATORY: History of obstructive sleep apnea. No reports of pneumonia. GASTROINTESTINAL: Denies any heartburn or blood in stools. NEURO: No headaches or seizure disorders. PSYCH: History of depression without suicidal ideation. HEMATOLOGIC: Denies any easy bruising or bleeding. GENITOURINARY: Denies blood in urine. SKIN: Has panniculitis. No cancer. PHYSICAL EXAM: VITAL SIGNS: 6 foot 1, 349 pounds. Body mass index of 46.1 ABDOMEN: No palpable incisional hernias. Lap band port palpated. the left upper quadrant. No signs of redness. Soft, nontender, nondistended. GENERAL: Well-developed, pleasant male in no acute distress. HEENT: No scleral icterus. Extraocular movements grossly intact. Moistbuccal mucosa. NECK: Supple without lymphadenopathy. CHEST: Nonlabored respirations. Equal bilateral excursions. CARDIOVASCULAR: Regular rate and rhythm. MUSCULOSKELETAL: No clubbing, cyanosis, or edema. NEURO: No focal or lateralizing signs. Cranial nerves II-12 grossly intact. PSYCH: Appropriate affect. Alert and order person place and time. SKIN: Well perfused. Good skin turgor. STUDIES: Ultrasound of the gallbladder dependently reviewed demonstrate moderate fatty liver disease. No large gallstones identified. This is my independent interpretation. ASSESSMENT: 1. Morbid obesity due to excess calories, BMI 46.1 2. Osteoarthritis lower back 3. Hypertensive heart disease 4. Obstructive sleep apnea. 5. Generalized anxiety disorder 6. Depressive disorder 7. Hyperlipidemia 8. Complications of adjustable gastric band 9. Chronic cholecystitis PLAN: 1. Bariatric options between a sleeve, band and a Bonita-en-Y gastric bypass were reviewed in detail. The patient elected for a sleeve gastrectomy. Robotic assisted approach described. Robotic cholecystectomy described chronic cholecystitis. 2. The [place] [facility] Data was also reviewed with benefits and risks as described. 3. An 8 page second-generation bariatric consent form was reviewed in detail including potential of bleeding, infection, leaks, adequate weight loss, nutritional deficiencies which the patient demonstrated understanding of the risks. 4. A 2 week high-protein low caloric 800 kcal diet described to address hepatomegaly. 5. Preoperative labs including complete metabolic panel and CBC with type and screen recommended. 6. DVT prophylaxis per [place] [facility]. 7. Antibiotic prophylaxis. 8. Inpatient hospitalization anticipated for more than 2 nights. 9. All questions and concerns were addressed with the patient. 10. The patient is at elevated risk for perioperative complications with sleep apnea and hypertensive heart disease including prior sleeve gastrectomy 11. Overall, patient has expressed understanding of bariatric care including postoperative diet and commitment of lifestyle. Patient should benefit from surgical intervention for correction of morbid obesity. 12. He is elevated risk due to pre-existing comorbid conditions Past Medical History Past Medical History: Blood Disorder, Diabetes Mellitus, Hyperlipidemia, Hypertension, Osteoarthritis (OA), Sleep Apnea/CPAP/BIPAP Additional Past Medical History / Comment(s): borderline diabetes, MGUS- Monoclonal Gammopathy-blood disorder, uses CPAP. History of Any Multi-Drug Resistant Organisms: None Reported Past Surgical History: Bariatric Surgery, Orthopedic Surgery Additional Past Surgical History / Comment(s): Lap Band (Dr. Henry 2002), Left knee scope x3, Rt ring trigger finger injection, COLONOSCOPY, EGD, Lap band removal 05/2024 Past Anesthesia/Blood Transfusion Reactions: No Reported Reaction Past Psychological History: Anxiety, Depression Additional Psychological History / Comment(s): UNDER CONTROL AT THIS TIME Smoking Status: Never smoker Past Alcohol Use History: Occasional Additional Past Alcohol Use History / Comment(s): 1-2 6oz. red wine weekly Past Drug Use History: None Reported - Past Family History Mother Family Medical History: Hypertension, Respiratory Disorder Additional Family Medical History / Comment(s): at age 63 from lung problems, was a smoker Father Family Medical History: COPD, Hypertension Additional Family Medical History / Comment(s): Still living age 74 as of 10/03/15 Medications and Allergies Home Medications Medication Instructions Recorded Confirmed Type Aspirin [Adult Low Dose Aspirin EC] 81 mg PO PC-LUNCH 03/30/24 07/20/24 History Atorvastatin [Lipitor] 20 mg PO PC-SUPPER 03/30/24 07/20/24 History Loratadine [Claritin] 10 mg PO PC-SUPPER 03/30/24 07/20/24 History Losartan Potassium 100 mg PO PC-SUPPER 03/30/24 07/20/24 History Metoprolol Succinate (ER) [Toprol 50 mg PO PC-SUPPER 03/30/24 07/20/24 History XL] amLODIPine [Norvasc] 10 mg PO PC-SUPPER 03/30/24 07/20/24 History hydroCHLOROthiazide 12.5 mg PO PC-SUPPER 03/30/24 07/20/24 History Acetaminophen Tab [Tylenol Tab] 1,000 mg PO Q6HR PRN #30 tablet 06/09/24 07/20/24 Rx Pantoprazole [Protonix] 40 mg PO DAILY #14 tab 06/09/24 07/20/24 Rx Simethicone [Gas-X] 125 mg PO AC-TID PRN #20 capsule 06/09/24 07/20/24 Rx Allergies Allergy/AdvReac Type Severity Reaction Status Date / Time aspirin Allergy Rash/Hives Verified 07/20/24 13:55 Penicillins AdvReac Rash/Hives Verified 07/20/24 13:55
[~2024-07-25 08:48] MED LIST changes: -HEPARIN SODIUM,PORCINE 5,000 UNIT/ML 1 ML VIAL SQ PRN; -HYDROmorphone 0.5 MG/0.5 ML SYRINGE IVP PRN
[2024-07-25 09:50] LABS: Glucose,Whole Blood 96 mg/dL (70-110)
[2024-07-25] MEDS: IV FLUID CONTINUATION 1,000 ML IV ONE ×2 (09:58→14:09)
[2024-07-25] MEDS: LACTATED RINGERS 1,000 ML IV SCH (09:59)
[2024-07-25] MEDS: ALVIMOPAN 12 MG CAPSULE PO PRN (10:03)
[2024-07-25] MEDS: ACETAMINOPHEN TAB 500 MG TAB PO PRN (10:03)
[2024-07-25] MEDS: CHLORHEXIDINE GLUCONATE 15 ML CUP MUCOUS MEM STA (10:03)
[2024-07-25] MEDS: DEXAMETHASONE SOD PHOSPHATE 4 MG/ML 1 ML VIAL IV ONE (10:07)
[2024-07-25] MEDS: ONDANSETRON 4 MG/2 ML VIAL IVP ONE (10:07)
[2024-07-25] MEDS: PANTOPRAZOLE 40 MG/10 ML VIAL IVP STA (10:07)
[2024-07-25 10:11] LABS: Basophils # (A) 0.04 10*3/uL (0.00-0.10); Basophils % (A) 0.6 %; Eosinophils # (A) 0.14 10*3/uL (0.04-0.35); HCT 45.4 % (39.6-50.0); HGB 16.1 g/dL (13.0-17.0); Lymphocytes # (A) 1.79 10*3/uL (0.90-5.00); Lymphocytes % (A) 25.4 %; MCH 29.1 pg (27.0-32.0); MCHC 35.5 g/dL (32.0-37.0); MCV 81.9 fL (80.0-97.0); Mean Platelet Volume 10.5 fL (9.5-12.2); Monocytes # (A) 0.84 10*3/uL (0.20-1.00); Monocytes % (A) 11.9 %; Neutrophils # (A) 4.22 10*3/uL (1.80-7.70); Neutrophils % (A) 59.8 %; Platelet Count 301 10*3/uL (140-440); RBC 5.54 10*6/uL (4.40-5.60); RDW 13.1 % (11.5-14.5); WBC 7.05 10*3/uL (4.50-10.00)
[2024-07-25 10:27] LABS: African American GFR (CKD) >90 (>60 ml/min/1.73 sqM); Anion Gap 12 mmol/L; Blood Urea Nitrogen 18 mg/dL (9-20); Calcium 9.6 mg/dL (8.4-10.2); Carbon Dioxide 23 mmol/L (22-30); Chloride 103 mmol/L (98-107); Glucose 95 mg/dL (74-99); Non-African American GFR(CKD) >90 (>60 ml/min/1.73 sqM); Potassium 3.9 mmol/L (3.5-5.1); Sodium 138 mmol/L (137-145)
[2024-07-25] MEDS: ENOXAPARIN 40 MG/0.4 ML SYRINGE SQ PRN (10:39)
[2024-07-25] MEDS ORDERED: PROPOFOL 10 MG/ML 20 ML VIAL IV ONE (13:25)
[2024-07-25] MEDS ORDERED: GLYCOPYRROLATE 0.2 MG/ML 2 ML VIAL ONE (13:25)
[2024-07-25] MEDS ORDERED: ROCURONIUM 10 MG/ML (5 ML VIAL) IV ONE (13:25)
[2024-07-25] MEDS ORDERED: fentaNYL (PF) 50 MCG/ML 2 ML AMP ONE (13:25)
[2024-07-25] MEDS ORDERED: LIDOCAINE 1% INJ 10MG/ML (20 ML MDV) ONE (13:25)
[2024-07-25] MEDS ORDERED: MIDAZOLAM 2 MG/2 ML VIAL ONE (13:25)
[2024-07-25] MEDS ORDERED: SUCCINYLCHOLINE CHLORIDE 200 MG/10 ML VIAL IV ONE (13:25)
[2024-07-25] MEDS ORDERED: NEOSTIGMINE 1 MG/ML 10 ML VIAL ONE (13:25)
[2024-07-25] MEDS ORDERED: HYDROmorphone (PF) 1 MG/ML ONE (13:25)
[2024-07-25] MEDS: ceFAZolin 3 GM in SODIUM CHLORIDE 0.9% 100 ML IVPB PRN (13:29)
[2024-07-25] MEDS: LIDOCAINE 1%-EPI 1:100,000 20 ML VIAL SQ ONE (13:55)
[2024-07-25] MEDS: HYDROmorphone 0.5 MG/0.5 ML SYRINGE IVP PRN (15:39)
[2024-07-25 15:47] LABS: Glucose,Whole Blood 143 mg/dL (70-110)
[2024-07-25] MEDS ORDERED: NALOXONE 0.4 MG/ML 1 ML VIAL IV PRN (16:12)
[2024-07-25] MEDS ORDERED: diphenhydrAMINE 50 MG/ML 1 ML VIAL IVP PRN (16:13)
[2024-07-25] MEDS ORDERED: HYDROmorphone 1 MG/ML 1 ML SYRINGE IVP PRN (16:13)
[2024-07-25] MEDS: METOCLOPRAMIDE 5 MG/ML 2 ML VIAL IVP SCH (17:22)
[2024-07-25] MEDS: DEXAMETHASONE SOD PHOSPHATE 10 MG/ML 1 ML VIAL IVP STA (17:22)
[2024-07-25] MEDS: HYOSCYAMINE ORAL DROPS 1.875 MG/15 ML BOTTLE PO SCH (17:23)
[2024-07-25] MEDS: SIMETHICONE 40 MG/0.6 ML DROPS 2,000 MG/30 ML BOTTLE PO SCH (17:24)
[2024-07-25] MEDS: SODIUM CHLORIDE 0.9% 1,000 ML IV SCH (17:24)
[2024-07-25] MEDS: ACETAMINOPHEN IV (For NPO) 1,000 MG in EMPTY BAG 1 BAG IVPB SCH (17:28)
[2024-07-25] MEDS: ONDANSETRON 4 MG/2 ML VIAL IVP SCH (17:54)
[2024-07-25] MEDS: LOSARTAN 50 MG TAB PO SCH (17:59)
[2024-07-25] MEDS: amLODIPine 10 MG TAB PO SCH (17:59)
[2024-07-25] MEDS: METOPROLOL SUCCINATE (ER) 50 MG TAB.ER.24H PO SCH (17:59)
[2024-07-25] MEDS: LORATADINE 10 MG TAB PO SCH (17:59)
[2024-07-25] MEDS: 0.9% NACL WITH KCL 20 MEQ/L 1,000 ML IV SCH (20:00)
[2024-07-25] MEDS: ALBUTEROL NEBULIZED 2.5 MG/3 ML INHALATION SCH (20:01)
[2024-07-25] MEDS: PANTOPRAZOLE 40 MG/10 ML VIAL IVP SCH (21:27)
[2024-07-25] MEDS: ceFAZolin 3 GM in SODIUM CHLORIDE 0.9% 100 ML IVPB SCH (21:29)
[2024-07-25] MEDS: fentaNYL PCA 500 MCG/50 ML BAG IV SCH (23:17)
[2024-07-26] MEDS: DEXAMETHASONE SOD PHOSPHATE 4 MG/ML 1 ML VIAL IVP SCH (00:38)
[2024-07-26 08:00] LABS: Basophils # (A) 0.01 X 10*3/uL (0.00-0.10); Basophils % (A) 0.1 %; Eosinophils # (A) 0 X 10*3/uL (0.04-0.35); Eosinophils % (A) 0 %; HCT 43.6 % (39.6-50.0); HGB 14.6 g/dL (13.0-17.0); Lymphocytes # (A) 0.87 X 10*3/uL (0.90-5.00); Lymphocytes % (A) 10.4 %; MCH 28.3 pg (27.0-32.0); MCHC 33.5 g/dL (32.0-37.0); MCV 84.7 FL (80.0-97.0); Mean Platelet Volume 11.3 FL (9.5-12.2); Monocytes # (A) 0.19 X 10*3/uL (0.20-1.00); Monocytes % (A) 2.3 %; NRBC Per 100 WBC 0 X 10*3/uL (0.00-0.01); Neutrophils # (A) 7.28 X 10*3/uL (1.80-7.70); Neutrophils % (A) 86.8 %; Platelet Count 283 X 10*3/uL (140-440); RBC 5.15 X 10*6/uL (4.40-5.60); RDW 13.2 % (11.5-14.5); WBC 8.38 X 10*3/uL (4.50-10.00)
[2024-07-26] MEDS ORDERED: 0.9% NACL WITH KCL 20 MEQ/L 1,000 ML IV SCH (08:00)
[2024-07-26 08:21] LABS: Blood Urea Nitrogen 16.4 mg/dL (9.0-27.0); Calcium 8.7 mg/dL (8.7-10.3); Carbon Dioxide 20.9 mmol/L (21.6-31.8); Chloride 104 mmol/L (96-109); Phosphorus 2.5 mg/dL (2.4-5.1); Potassium 4.4 mmol/L (3.5-5.5); Sodium 138 mmol/L (135-145)
[2024-07-26 08:59] VITALS: BP 141/71; PULSE 71; RESP 18; TEMP 98
[2024-07-26] MEDS: ENOXAPARIN 40 MG/0.4 ML SYRINGE SQ SCH (09:39)
--- NOTE | 2024-07-26 09:51 | P.DS ---
Providers Date of admission: 07/25/2024 Expected date of discharge: 07/26/24 Attending physician: Jamila Gutierrez Primary care physician: Stated None Hospital Course: POSTOPERATIVE DIAGNOSES: 1. Morbid obesity due to excess calories, BMI 46.1 2. Osteoarthritis lower back 3. Hypertensive heart disease 4. Obstructive sleep apnea. 5. Generalized anxiety disorder 6. Depressive disorder 7. Hyperlipidemia 8. Complications of adjustable gastric band 9. Chronic cholecystitis 10. Perigastric adhesions COURSE: Brennon Alfredo is a 58-year-old male with adjustable gastric band send 2002. He is 22 years with his adjustable gastric band. His last visit to the bariatric center was 8 years ago. As a result of his morbid obesity, he has developed osteoarthritis of the lower back, hypertensive heart disease, struct of sleep apnea including hyperlipidemia. He reports having a recent colonoscopy last year for his birthday. He presents with complications of adjustable gastric band after removal. He is seeking sleeve gastrectomy. Postoperatively, patient tolerating liquids. Pain controlled. Labs within normal limits. Esophagram as outpatient described. Urine is clear. Close outpatient follow-up in 24 to 48 hours described. Procedures: OPERATION: 1. Robotic assisted daVinci Xi laparoscopic sleeve gastrectomy with 40-Hebrew bougie, multiport. 2. Robotic assisted daVinci Xi laparoscopic lysis of adhesions 3. Intraoperative esophagogastroduodenoscopy. ANESTHESIA: Gen. local anesthetic ESTIMATED BLOOD LOSS: 20 mL SPECIMENS REMOVED: Sleeve gastrectomy COMPLICATIONS: None. FINDINGS: 1. Negative intraoperative esophagogastrojejunoscopy leak test. 2. Severe perigastric adhesions from prior adjustable band requiring extensive lysis adhesions 3. Total of 6 staplers used including 1 - 60 mm black, 1 - 60 mm green, 4 - 60 mm blue robot loads used to create the gastric sleeve. 4. Sleeve gastrectomy, 30 cm x 6 cm 5. Mild gastritis within the stomach from upper endoscopy 6. Patient reports no symptoms from gallbladder as result, cholecystectomy not performed Patient Condition at Discharge: Good Plan - Discharge Summary Discharge Rx Participant: Yes New Discharge Prescriptions: New Simethicone [Gas-X] 125 mg PO AC-TID PRN #20 capsule PRN Reason: Pain Simethicone 40 mg/0.6 ml Drops [Mylicon Drops] 40 mg PO PCHS PRN #30 ml PRN Reason: Gas Omeprazole [PriLOSEC] 40 mg PO DAILY #30 cap ursodioL [Ursodiol] 300 mg PO BID 30 Days #60 capsule Ondansetron Odt [Zofran Odt] 4 mg PO Q8HR PRN #9 tab PRN Reason: Nausea Acetaminophen Tab [Tylenol Tab] 1,000 mg PO Q6HR PRN #30 tablet PRN Reason: Pain bisacodyL [Dulcolax] 5 mg PO DAILY PRN #10 tab PRN Reason: Constipation Continue Loratadine [Claritin] 10 mg PO PC-SUPPER hydroCHLOROthiazide 12.5 mg PO PC-SUPPER Losartan Potassium 100 mg PO PC-SUPPER Aspirin [Adult Low Dose Aspirin EC] 81 mg PO PC-LUNCH amLODIPine [Norvasc] 10 mg PO PC-SUPPER Metoprolol Succinate (ER) [Toprol XL] 50 mg PO PC-SUPPER Atorvastatin [Lipitor] 20 mg PO PC-SUPPER Discontinued Simethicone [Gas-X] 125 mg PO AC-TID PRN #20 capsule PRN Reason: Pain Acetaminophen Tab [Tylenol] 1,000 mg PO Q6HR PRN #30 tablet PRN Reason: Pain Discharge Medication List Aspirin [Adult Low Dose Aspirin EC] 81 mg PO PC-LUNCH 03/30/24 [History] Atorvastatin [Lipitor] 20 mg PO PC-SUPPER 03/30/24 [History] Loratadine [Claritin] 10 mg PO PC-SUPPER 03/30/24 [History] Losartan Potassium 100 mg PO PC-SUPPER 03/30/24 [History] Metoprolol Succinate (ER) [Toprol XL] 50 mg PO PC-SUPPER 03/30/24 [History] amLODIPine [Norvasc] 10 mg PO PC-SUPPER 03/30/24 [History] hydroCHLOROthiazide 12.5 mg PO PC-SUPPER 03/30/24 [History] Acetaminophen Tab [Tylenol Tab] 1,000 mg PO Q6HR PRN #30 tablet 07/25/24 [Rx] Simethicone [Gas-X] 125 mg PO AC-TID PRN #20 capsule 07/25/24 [Rx] Omeprazole [PriLOSEC] 40 mg PO DAILY #30 cap 07/26/24 [Rx] Ondansetron Odt [Zofran Odt] 4 mg PO Q8HR PRN #9 tab 07/26/24 [Rx] Simethicone 40 mg/0.6 ml Drops [Mylicon Drops] 40 mg PO PCHS PRN #30 ml 07/26/24 [Rx] bisacodyL [Dulcolax] 5 mg PO DAILY PRN #10 tab 07/26/24 [Rx] ursodioL [Ursodiol] 300 mg PO BID 30 Days #60 capsule 07/26/24 [Rx] Follow up Appointment(s)/Referral(s[facility] [place] [facility] - 08/03/24 3:00 pm Activity/Diet/Wound Care/Special Instructions: DO NOT GO TO ER UNTIL AFTER AUGUST 25 CALL BARIATRIC CENTER FOR ANY ISSUES. Liquid diet only for 2 weeks until August 09June Shower. No soaking in bath tubs 2 weeks until August 09 Continue to use incentive spirometry to prevent pneumonias. Please continue to ambulate at home to prevent blood clots in legs. Please notify your surgeon if you develop nausea and vomiting including new onset of abdominal pain. No lifting over 4 pounds in 4 weeks, August 25 Drink 64 oz of fluid daily. Start protein shakes on . Notify bariatric center for temp over 101.0, increased pain, drainage from incisions. No straws or carbonated beverages. Liquid diet only. Sugar content should be less than 6 g to avoid dumping syndrome. Take MOM for constipation. CRUSH, OPEN, OR CUT TABLETS LARGER THAN A SIZE OF A TIC TAC Discharge Disposition: HOME SELF-CARE
[2024-07-26 11:48] VITALS: BMI 43.6
--- NOTE | 2024-07-27 11:22 | P.OP ---
Date of Procedure: 07/25/24 Description of Procedure: EBL 5 SURGEON: BRYN PARRA MD PREOPERATIVE DIAGNOSES: 1. Morbid obesity due to excess calories, BMI 46.1 2. Osteoarthritis lower back 3. Hypertensive heart disease 4. Obstructive sleep apnea. 5. Generalized anxiety disorder 6. Depressive disorder 7. Hyperlipidemia 8. Complications of adjustable gastric band 9. Chronic cholecystitis POSTOPERATIVE DIAGNOSES: 1. Morbid obesity due to excess calories, BMI 46.1 2. Osteoarthritis lower back 3. Hypertensive heart disease 4. Obstructive sleep apnea. 5. Generalized anxiety disorder 6. Depressive disorder 7. Hyperlipidemia 8. Complications of adjustable gastric band 9. Chronic cholecystitis 10. Perigastric adhesions OPERATION: 1. Robotic assisted daVinci Xi laparoscopic sleeve gastrectomy with 40-Kazakh bougie, multiport. 2. Robotic assisted daVinci Xi laparoscopic lysis of adhesions 3. Intraoperative esophagogastroduodenoscopy. ANESTHESIA: Gen. local anesthetic ESTIMATED BLOOD LOSS: 20 mL SPECIMENS REMOVED: Sleeve gastrectomy COMPLICATIONS: None. FINDINGS: 1. Negative intraoperative esophagogastrojejunoscopy leak test. 2. Severe perigastric adhesions from prior adjustable band requiring extensive lysis adhesions 3. Total of 6 staplers used including 1 - 60 mm black, 1 - 60 mm green, 4 - 60 mm blue robot loads used to create the gastric sleeve. 4. Sleeve gastrectomy, 30 cm x 6 cm 5. Mild gastritis within the stomach from upper endoscopy 6. Patient reports no symptoms from gallbladder as result, cholecystectomy not performed INDICATIONS: Brennon Alfredo is a 58-year-old male with adjustable gastric band send 2002. He is 22 years with his adjustable gastric band. His last visit to the bariatric center was 8 years ago. As a result of his morbid obesity, he has developed osteoarthritis of the lower back, hypertensive heart disease, struct of sleep apnea including hyperlipidemia. He reports having a recent colonoscopy last year for his birthday. He presents with complications of adjustable gastric band after removal. He is seeking sleeve gastrectomy. At his height of 6 feet 1 inches, he came in weighing 329 pounds. Now he comes in weighing 345 pounds. He has gained 16 pounds in 1 year. His body mass index is 45.6. He is 157 pounds overweight. All surgical options for morbid obesity had been described using the [place] [facility] collaborative comorbidity resolution including complication risk score. A second-generation bariatric consent form was described in detail including the possibility of protein malnutrition, leaks, gastric stricture, venous thrombosis, gastroesophageal reflux disease, need for further surgery for which she demonstrated understanding. Benefits and risks of the procedure were described at length. Informed consent was obtained. DESCRIPTION: The patient was brought into the operating room theater. Preoperatively the patient had received Lovenox subcutaneously for DVT prophylaxis. Additionally the patient had Peridex oral solution as an oral decontaminant. After general induction, the abdomen was prepped and draped in standard sterile fashion. An Ioban draping was placed along the abdomen. A robotic da Mateus Xi system was prepped and primed. At 15 cm from the xiphoid, proposed port sites were marked with indelible marker along the anterior axillary line bilaterally, mid axillary line bilaterally with each ports were marked 10 to 15 cm from each other. The robotic stapler port was marked for the right midclavicular line. A 5 mm 0 degrees laparoscopic trocar entry was performed along the left upper quadrant. The abdomen was insufflated to 15 mmHg pressure was tolerated well. Diagnostic laparoscopy demonstrated no injury to bowel, viscera, or mesentery. No evidence of large hiatus hernia was identified. The liver edge was excellent with sharp liver edge consistent with 2-week high-protein low-carb diet. A 8 mm port was placed along the left upper abdominal wall after exchanging the 5 mm port. A separate 8 mm port was placed along the left lateral abdominal wa ll. Please note that the ports were placed at least 20 cm away from the target anatomy. Care was taken to check each robotic arms were safely away from collision with the bed or the patient. At the epigastrium, a medium sized Ten liver retractor was placed under direct visualization with the Iron H[employer] Farmer placed under the right shoulder of the patient. Next, 12-mm robot stapler port was placed along the right upper quadrant. The camera 8-mm port was maintained along the epigastrium. The patient was repositioned in reverse Trendelenburg position at 25-degrees after lowering the bed. The robot was docked along the left side of the patient. Using a grasper for arm 4, a vessel sealer for arm 3, including grasper for arm 1, the robotic system was docked and primed as described. Instruments were interchanged by the press operator assistant for stapler loads. The camera was placed at 30- degrees down. I had sat at the console. Severe adhesions of the gastric cardia to the liver was identified. Vessel sealer including blunt dissection was performed to carefully dissect the capsule of the prior adjustable gastric band from the liver. Mild bleeding was identified and controlled using gauze. Once adhesions were lysed with vessel sealer and blunt dissection, upper endoscopy was performed to ensure no encroachment or injury to the esophagus or upper stomach. Upper scope was placed along the posterior oropharynx as I went to the head of the bed. Presence of gastritis was identified. I went back to the console and lyse adhesions was completed after 50% of the case. The pylorus was identified and 6 cm proximally along the greater curvature of the stomach, the short gastrics were mobilized upwards to the angle of His using a vessel sealer. Hemostasis was excellent during this portion of the procedure. Next, the upper pole of the stomach was adherent to the left afshin, which was gently dissected free using atraumatic grasper. I went to the head of the bed and placed 40-Kazakh blunt bougie into the stomach. The bougie was readjusted by the nurse home hospice aide. Robotic stapler followed by black 60 mm x 1, green 60 mm x 1, and blue 60 mm loads x 4 were used to create the sleeve. Initial firing was across the antrum of the stomach towards the angle of His. The staple line was linear without corkscrewing. The space from the angularis incisura of the sleeve was approximately 4 cm. I then went to the head of the bed to perform the intraoperative esophagogastroduodenoscopy leak test. The bougie was withdrawn. The upper pole of the stomach was bathed using normal saline solution. The scope was withdrawn with careful inspection along the staple line for which no leaks were found along the entire length. Additionally,the sleeve was completely hemostatic without any encroachment along the angularis incisura. Its topology was a soft "J". No stricture was encountered upon placement of the scope. The GI tract was desufflated. The patient tolerated this portion of the procedure well. The scope was completely withdrawn. The robot was undocked. I then rescrubbed into case, whereby the irrigation fluid was aspirated from the abdominal cavity. Tisseel fibrin sealant was placed along the entire staple length. Once dried the Ten liver retractor was removed. Attention was now brought to removal of the specimen. The distal end of the sleeve gastrectomy specimen was brought out through the 12 mm port at the left upper quadrant. The specimen was gently removed en total. No contamination had occurred during this process. All instruments and pneumoperitoneum including irrigation fluid was removed from the abdominal cavity. The 12 mm port site was closed using 0-Vicryl and Rommel Harrell and irrigated with diluted hydrogen peroxide. The final incisions were closed using subcuticular interrupted suture of 4-0 Monocryl. Exofin was applied to the skin once the skin had been cleansed. OptiFoam dressing was placed along the stomach extraction site. The sleeve specimen was measured and checked also for leaks which none were found. At the end of the procedure, needle, sponge, and instrument count was verified correct by the surgical technologist. The patient was taken to the postanesthesia care unit in stable condition. The patient had tolerated the procedure well. Intraoperative films and findings were reviewed with the patient's family. Plan - Discharge Summary Discharge Rx Participant: Yes New Discharge Prescriptions: New Simethicone [Gas-X] 125 mg PO AC-TID PRN #20 capsule PRN Reason: Pain Simethicone 40 mg/0.6 ml Drops [Mylicon Drops] 40 mg PO PCHS PRN #30 ml PRN Reason: Gas Omeprazole [PriLOSEC] 40 mg PO DAILY #30 cap ursodioL [Ursodiol] 300 mg PO BID 30 Days #60 capsule Ondansetron Odt [Zofran Odt] 4 mg PO Q8HR PRN #9 tab PRN Reason: Nausea Acetaminophen Tab [Tylenol Tab] 1,000 mg PO Q6HR PRN #30 tablet PRN Reason: Pain bisacodyL [Dulcolax] 5 mg PO DAILY PRN #10 tab PRN Reason: Constipation Continue Loratadine [Claritin] 10 mg PO PC-SUPPER hydroCHLOROthiazide 12.5 mg PO PC-SUPPER Losartan Potassium 100 mg PO PC-SUPPER Aspirin [Adult Low Dose Aspirin EC] 81 mg PO PC-LUNCH amLODIPine [Norvasc] 10 mg PO PC-SUPPER Metoprolol Succinate (ER) [Toprol XL] 50 mg PO PC-SUPPER Atorvastatin [Lipitor] 20 mg PO PC-SUPPER Discontinued Simethicone [Gas-X] 125 mg PO AC-TID PRN #20 capsule PRN Reason: Pain Acetaminophen Tab [Tylenol] 1,000 mg PO Q6HR PRN #30 tablet PRN Reason: Pain Discharge Medication List Aspirin [Adult Low Dose Aspirin EC] 81 mg PO PC-LUNCH 03/30/24 [History] Atorvastatin [Lipitor] 20 mg PO PC-SUPPER 03/30/24 [History] Loratadine [Claritin] 10 mg PO PC-SUPPER 03/30/24 [History] Losartan Potassium 100 mg PO PC-SUPPER 03/30/24 [History] Metoprolol Succinate (ER) [Toprol XL] 50 mg PO PC-SUPPER 03/30/24 [History] amLODIPine [Norvasc] 10 mg PO PC-SUPPER 03/30/24 [History] hydroCHLOROthiazide 12.5 mg PO PC-SUPPER 03/30/24 [History] Acetaminophen Tab [Tylenol Tab] 1,000 mg PO Q6HR PRN #30 tablet 07/25/24 [Rx] Simethicone [Gas-X] 125 mg PO AC-TID PRN #20 capsule 07/25/24 [Rx] Omeprazole [PriLOSEC] 40 mg PO DAILY #30 cap 07/26/24 [Rx] Ondansetron Odt [Zofran Odt] 4 mg PO Q8HR PRN #9 tab 07/26/24 [Rx] Simethicone 40 mg/0.6 ml Drops [Mylicon Drops] 40 mg PO PCHS PRN #30 ml 07/26/24 [Rx] bisacodyL [Dulcolax] 5 mg PO DAILY PRN #10 tab 07/26/24 [Rx] ursodioL [Ursodiol] 300 mg PO BID 30 Days #60 capsule 07/26/24 [Rx] [place] up [facility]ment(s[place]Ref[place] [facility] 3:00 pm Activity/Diet/Wound Care/Special Instructions: DO NOT GO TO ER UNTIL AFTER AUGUST 25 CALL BARIATRIC CENTER FOR ANY ISSUES. Liquid diet only for 2 weeks until August 09June Shower. No soaking in bath tubs 2 weeks until August 09 Continue to use incentive spirometry to prevent pneumonias. Please continue to ambulate at home to prevent blood clots in legs. Please notify your surgeon if you develop nausea and vomiting including new onset of abdominal pain. No lifting over 4 pounds in 4 weeks, August 25 Drink 64 oz of fluid daily. Start protein shakes on . Notify bariatric center for temp over 101.0, increased pain, drainage from incisions. No straws or carbonated beverages. Liquid diet only. Sugar content should be less than 6 g to avoid dumping syndrome. Take MOM for constipation. CRUSH, OPEN, OR CUT TABLETS LARGER THAN A SIZE OF A TIC TAC Discharge Disposition: HOME SELF-CARE
--- NOTE | 2024-07-30 13:22 | P.PN ---
Progress Note - Text Progress Note Date: 07/30/24 1327 - 1324: Voicemail message left regarding contact the bariatric center should he have any further issues. Drinking adequate fluids to prevent nausea was described.
== END 2024-07-26 13:41 | disposition home or self-care (01) ==
LOC: OR 08:48 → 4SSUR 15:26 → OR 07-26 13:41
PROVIDERS: ATTEND Surgery Plastic and Reconstructive Surgery
DX: E66.01 Morbid (severe) obesity due to excess calories (principal); K81.1 Chronic cholecystitis; I11.9 Hypertensive heart disease without heart failure; F41.1 Generalized anxiety disorder; F32.A Depression, unspecified; E78.5 Hyperlipidemia, unspecified; E11.9 Type 2 diabetes mellitus without complications; M19.90 Unspecified osteoarthritis, unspecified site; G47.33 Obstructive sleep apnea (adult) (pediatric); Z68.42 Body mass index [BMI] 45.0-49.9, adult; Z83.49 Family history of other endocrine, nutritional and metabolic diseases; Z98.84 Bariatric surgery status; Z82.49 Family history of ischemic heart disease and other diseases of the circulatory system; Z79.02 Long term (current) use of antithrombotics/antiplatelets; Z79.82 Long term (current) use of aspirin; Z88.0 Allergy status to penicillin; Z79.899 Other long term (current) drug therapy; K29.50 Unspecified chronic gastritis without bleeding; K66.0 Peritoneal adhesions (postprocedural) (postinfection)
CPT/HCPCS: 43775; S2900; 80048; 80051; 82310; 82565; 83735; 84100; 84520; 85025; 86850; 86900; 86901; 88307; 94760

== ENCOUNTER → 2024-08-03 | Outpatient (CLI) | payer BC ==
[2024-08-03 14:38] VITALS: BP 132/86; PULSE 82; RESP 16; TEMP 97.4; BMI 41.9
--- NOTE | 2024-08-03 15:01 | P.BASOAP ---
Subjective Progress Note Date: 08/03/24 His goal is 200 pounds. He is DVT and moving his legs. NO heartburn. Still gallbladder. Urosodiol. Pain is ok. NO issues. Fluids are great. 120 gr protein. He has ear plugging. Looking for ear pop. Warm beverages. No infections. Objective - Vital Signs Vital signs: Vital Signs Temp 97.4 F L 08/03/24 14:13 Pulse 82 08/03/24 14:13 Resp 16 08/03/24 14:13 BP 132/86 08/03/24 14:13 Pulse Ox FiO2 Intake & Output 08/02/24 08/03/24 08/03/24 18:59 06:59 18:59 Weight 144.242 kg Assessment/Plan Plan: Date: 08/03/24 Initial Weight: 139.451 kg Initial BMI: 40.5 Current Weight: 144.242 kg Current BMI: 41.9 Type of Surgery: Total Volume in Band: 2.2 Previous Volume: Volume Removed: Volume Added: Band Size:
== END ==
LOC: BARWHC3 13:57
PROVIDERS: ATTEND Surgery Plastic and Reconstructive Surgery
DX: E66.01 Morbid (severe) obesity due to excess calories (principal); Z88.0 Allergy status to penicillin; Z88.6 Allergy status to analgesic agent; Z68.41 Body mass index [BMI] 40.0-44.9, adult
CPT/HCPCS: 97802; 99211

== ENCOUNTER → 2024-08-24 | Outpatient (CLI) | payer BC ==
[2024-08-24 13:14] VITALS: BP 129/79; PULSE 60; RESP 16; TEMP 97.9; BMI 41.0
--- NOTE | 2024-08-24 14:29 | P.BASOAP ---
Subjective Progress Note Date: 08/24/24 no heartburn. Pain along in LUQ improved. Lost 40 pounds in 3 months. Must continue with ursodiol. He denies abdominal pain. Objective - Vital Signs Vital signs: Vital Signs Temp 97.9 F 08/24/24 13:11 Pulse 60 08/24/24 13:11 Resp 16 08/24/24 13:11 BP 129/79 08/24/24 13:11 Pulse Ox FiO2 Intake & Output 08/23/24 08/24/24 08/24/24 18:59 06:59 18:59 Weight 141.067 kg Assessment/Plan Plan: Date: 08/24/24 Initial Weight: 139.451 kg Initial BMI: 40.5 Current Weight: 141.067 kg Current BMI: 41.0 Type of Surgery: Vertical Sleeve Gastrectomy Total Volume in Band: 2.2 Previous Volume: Volume Removed: Volume Added: Band Size:
[2024-08-24 15:29] LABS: INR 1.0 (<1.2); Partial Thromboplastin Time 25.0 sec (22.0-30.0); Prothrombin Time 11.3 sec (10.0-12.5)
[2024-08-24 18:36] LABS: HCT 44.8 % (39.6-50.0); HGB 15.0 g/dL (13.0-17.0); MCH 28.4 pg (27.0-32.0); MCHC 33.5 g/dL (32.0-37.0); MCV 84.8 FL (80.0-97.0); NRBC Per 100 WBC 0 X 10*3/uL (0.00-0.01); Platelet Count 273 X 10*3/uL (140-440); RBC 5.28 X 10*6/uL (4.40-5.60); RDW 14.1 % (11.5-14.5); WBC 6.87 X 10*3/uL (4.50-10.00)
[2024-08-24 19:32] LABS: Prealbumin 19.5 mg/dL (18.0-42.0)
[2024-08-24 21:17] LABS: Ferritin 416.0 ng/mL (22.0-322.0); Iron 90 UG/DL (65-175); Magnesium 2.1 mg/dL (1.5-2.4); Total Iron Binding Capacity 375 UG/DL (228-460); Triglycerides 123.00 mg/dL (0.00-149.00); VLDL Calculation 24.60 mg/dL (5.00-40.00)
[2024-08-24 21:28] LABS: ALT 45 U/L (10-49); AST 29 U/L (14-35); Albumin 4.3 g/dL (3.8-4.9); Albumin/Globulin Ratio 1.72 Ratio (1.60-3.17); Alkaline Phosphatase 127 U/L (41-126); Anion Gap 18.80 mmol/L (4.00-12.00); BUN/Creat Ratio 16.78 Ratio (12.00-20.00); Blood Urea Nitrogen 15.1 mg/dL (9.0-27.0); Calcium 9.5 mg/dL (8.7-10.3); Carbon Dioxide 22.2 mmol/L (21.6-31.8); Chloride 102 mmol/L (96-109); Cholesterol 125.00 mg/dL (0.00-200.00); Globulin 2.5 g/dL (1.6-3.3); Glucose 92 mg/dL (70-110); HDL Cholesterol 35.30 mg/dL (40.00-60.00); LDL Cholesterol,Calculated 65.1 mg/dL (0.0-131.0); Potassium 4.1 mmol/L (3.5-5.5); Sodium 143 mmol/L (135-145); Total Protein 6.8 g/dL (6.2-8.2); Vitamin B12 247.0 pg/mL (200.0-944.0)
[2024-08-25 08:40] LABS: Zinc, Serum 96 ug/dL (60-130)
== END ==
LOC: BARWHC3 12:46
PROVIDERS: ATTEND Surgery Plastic and Reconstructive Surgery
DX: E66.01 Morbid (severe) obesity due to excess calories (principal); E89.1 Postprocedural hypoinsulinemia; D50.8 Other iron deficiency anemias; K91.2 Postsurgical malabsorption, not elsewhere classified; E44.1 Mild protein-calorie malnutrition; E55.9 Vitamin D deficiency, unspecified; K74.1 Hepatic sclerosis; T56.894A Toxic effect of other metals, undetermined, initial encounter; N19 Unspecified kidney failure; K50.90 Crohn's disease, unspecified, without complications; Z71.3 Dietary counseling and surveillance; Z68.41 Body mass index [BMI] 40.0-44.9, adult
CPT/HCPCS: 80053; 80061; 82306; 82525; 82607; 82728; 82746; 83540; 83550; 83735; 83970; 84100; 84134; 84255; 84425; 84443; 84590; 84630; 85027; 85610; 85730; 97803; 99211